=== PATIENT | male | born 1970 | race Caucasian/White ===

== ENCOUNTER 2023-05-30 12:31 | Emergency (ER) | payer OTHER ==
[~2023-05-30] VITALS: Ht 167.6 cm; Wt 145.1 kg
[2023-05-30 13:07] VITALS: BP 139/94; PULSE 96; RESP 20; TEMP 98
[2023-05-30 17:23] LABS: BASOPHILS % (AUTO) 0.5 % (0.0-2.0); EOSINOPHILS # (AUTO) 0.3 K/uL (0-0.4); EOSINOPHILS % (AUTO) 3.1 % (0.0-4.0); HEMOGLOBIN 14.1 g/dL (12.0-18.0); LYMPHOCYTES # (AUTO) 2.1 K/uL (2.0-11.5); LYMPHOCYTES % (AUTO) 22.9 % (20.5-51.1); MEAN CORPUSCULAR HEMOGLOBIN 29 pg (27-31); MEAN CORPUSCULAR HGB CONC 33 g/dL (33-37); MEAN CORPUSCULAR VOLUME 87.9 fL (80-94); MONOCYTES # (AUTO) 0.6 K/uL (0.8-1.0); MONOCYTES % (AUTO) 7.2 % (1.7-9.3); NEUTROPHILS % (AUTO) 66.3 % (42.2-75.2); PLATELET COUNT (AUTO) 186 K/uL (140-450); RED BLOOD CELL COUNT(AUTO) 4.89 MIL/uL (4.20-6.10); RED CELL DISTRIBUTION WIDTH 14.5 % (11.6-13.7)
[2023-05-30 17:52] LABS: ALBUMIN 3.5 g/dL (3.4-5.0); ANION GAP 10.6 (8-16); CARBON DIOXIDE 28.7 mmol/L (21-32); CREATININE 1.1 mg/dL (0.6-1.3); POTASSIUM 4.3 mmol/L (3.5-5.1); TOTAL BILIRUBIN 0.4 mg/dL (0.0-1.0)
[2023-05-30] MEDS ORDERED: SULF-59 PO (19:37)
[2023-05-30] MEDS ORDERED: CEPH-588 PO (19:37)
--- NOTE | 2023-05-30 19:55 | NUR ---
Patient discharged. Written and verbal after care instructions given and explained. Patient alert, oriented and verbalized understanding of instructions. Ambulatory with steady gait. All questions addressed prior to discharge. ID band removed. Patient advised to follow up with PMD. Rx of Keflex and Bactrim Ds tablet given. Patient educated on indication of medication including possible reaction and side effects. Opportunity to ask questions provided and answered.
== END 2023-05-30 19:55 | disposition home or self-care (01) ==
LOC: MED 12:31
DX: L03.115 Cellulitis of right lower limb (principal); R10.9 Unspecified abdominal pain; Z79.899 Other long term (current) drug therapy
CPT/HCPCS: 36415; 73700; 80053; 85025; 85651; 86140; 99284